=== PATIENT | male | born 1955 | race Caucasian/White ===

== ENCOUNTER → 2023-02-03 | Outpatient (CLI) | payer OTHER ==
[~2023-02-03] MED LIST: ZOFRAN ODT4 MG PO
== END ==
LOC: COL.RAD 11:51
DX: R97.20 Elevated prostate specific antigen [PSA] (principal)
CPT/HCPCS: A9575

== ENCOUNTER 2023-12-13 09:40 | Day surgery (SDC) | payer OTHER ==
[~2023-12-13] VITALS: Ht 182.9 cm; Wt 113.4 kg
[~2023-12-13 09:40] MED LIST changes: +LR 1,000 ML IV SCH; +Ondansetron 4 MG/2 ML VIAL IV PRN
[2023-12-13 09:58] VITALS: BP 147/80; PULSE 83; TEMP 97.1
[2023-12-13] MEDS ORDERED: FLOMAX 0.40.4 MG/CAP PO (10:06)
[2023-12-13] MEDS ORDERED: PROTONIX 40MG T40 MG PO (10:07)
[2023-12-13] MEDS ORDERED: LIPITOR 40MG TA40 MG PO (10:07)
[2023-12-13] MEDS ORDERED: PROZAC40 MG PO (10:07)
[2023-12-13] MEDS ORDERED: ASPIRIN 81M81 MG/TA2 PO (10:08)
[2023-12-13] MEDS ORDERED: WELLBUTRIN XL300 M1 PO (10:08)
[2023-12-13] MEDS ORDERED: VITAMIN B12 681 TAB PO (10:09)
[2023-12-13] MEDS ORDERED: NATURAL MAGNES200 MG PO (10:09)
[2023-12-13] MEDS ORDERED: VITAMIND3 5000 PO (10:10)
[2023-12-13] MEDS ORDERED: Glycopyrrolate 0.2 MG/ML 1 ML VIAL ONE (10:34)
[2023-12-13] MEDS ORDERED: Lidocaine PF 2% (20 MG/ML) 5 ML VIAL ONE (10:34)
[2023-12-13 11:30] VITALS: BP 129/74; PULSE 68; TEMP 97.1
[2023-12-13 11:45] VITALS: BP 138/82; PULSE 72
[2023-12-13 12:00] VITALS: BP 138/80; PULSE 70
--- NOTE | 2023-12-13 12:30 | NUR ---
1130 RETURNS TO ROOM 5 PER CART. AWAKE, ALERT. RESP UNLABORED. AMBULATES TO RECLINER WITH STANDBY ASSIST. DENIES NAUSEA, ABD PAIN OR DYSPHAGIA. VITAL SIGNS OBTAINED. 1145 TOLERATES PO SODA WITHOUT NAUSEA. ADMITS TO SWALLOWING WITHOUT DIFFICULTY 1200 DR. VAZQUEZ HERE TO VISIT WITH PATIENT 1205 DISCHARGE INSTRUCTIONS REVIEWED. PATIENT VERBALIZES UNDERSTANDING. COPY PROOVIDED IN DISCHARGE FOLDER 1215 DRESSES SELF, THEN SEATED IN WHEELCHAIR AWAITING ARRIVAL OF BRUSH OR BROOM CUTTER TO TRANSPORT PATIENT AT DISCHARGE
== END 2023-12-13 12:30 | disposition home or self-care (01) ==
LOC: SDCO 09:40
DX: D12.3 Benign neoplasm of transverse colon (principal); K63.5 Polyp of colon; K29.70 Gastritis, unspecified, without bleeding; K21.9 Gastro-esophageal reflux disease without esophagitis; K64.1 Second degree hemorrhoids; K57.31 Diverticulosis of large intestine without perforation or abscess with bleeding; R19.7 Diarrhea, unspecified; G43.909 Migraine, unspecified, not intractable, without status migrainosus; Z85.828 Personal history of other malignant neoplasm of skin; Z79.1 Long term (current) use of non-steroidal anti-inflammatories (NSAID); Z79.899 Other long term (current) drug therapy; Z79.82 Long term (current) use of aspirin; Z80.0 Family history of malignant neoplasm of digestive organs
CPT/HCPCS: J2704; J7120